=== PATIENT | female | born 1980 | race Two or more races ===

== ENCOUNTER 2020-01-12 16:04 | Emergency (ER) | payer OTHER ==
[~2020-01-12] VITALS: Ht 162.6 cm; Wt 88.0 kg
[~2020-01-12 16:04] MED LIST: ESCI20TA PO
[2020-01-12] MEDS ORDERED: ACETAMINOPHEN 500 MG TABLET ONE ×2 (16:29→16:56)
[2020-01-12] MEDS ORDERED: ACETAMINOPHEN 500 MG TABLET PO ONE (16:30)
[2020-01-12] MEDS ORDERED: SODIUM CHLORIDE 0.9% 1,000ML IVBOLUS ONE (17:30)
[2020-01-12] MEDS ORDERED: SODIUM CHLORIDE 0.9% 1,000 ML IV ONE (17:30)
[2020-01-12] MEDS ORDERED: ONDANSETRON 2MG/ML, 2ML IVPush ONE (17:30)
[2020-01-12] MEDS ORDERED: IBUPROFEN 200 MG TABLET PO ONE (17:30)
[2020-01-12] MEDS ORDERED: IBUPROFEN 600 MG TABLET ONE (17:40)
[2020-01-12] MEDS ORDERED: ONDANSETRON 2MG/ML, 2ML ONE (17:41)
[2020-01-12 18:04] LABS: BASOPHILS % (AUTO) 1 % (0-1); EOSINOPHILS % (AUTO) 1 % (1-7); LYMPHOCYTES % (AUTO) 24 % (22-44); MEAN CORPUSCULAR HEMOGLOBIN 27.1 pg (27.0-34.8); MEAN CORPUSCULAR HGB CONC 33.2 g/dL (32.4-35.8); MONOCYTES % (AUTO) 9 % (2-9); NEUTROPHILS % (AUTO) 66 % (42-75); PLATELET COUNT 138 x10^3/uL (130-400); RED BLOOD COUNT 5.66 x10^6/uL (3.82-5.3); RED CELL DISTRIBUTION WIDTH 13.7 % (9.6-15.2)
[2020-01-12 18:05] LABS: MD NO
[2020-01-12 18:15] LABS: ALBUMIN 3.4 g/dL (3.4-5.0); ANION GAP 6 mmol/L (5-15); CALCIUM 8.3 mg/dL (8.5-10.1); CHLORIDE 108 mmol/L (98-107)
[2020-01-12 18:20] LABS: ALANINE AMINOTRANSFERASE 211 U/L (12-78); ALKALINE PHOSPHATASE 113 U/L (45-117); BILIRUBIN,TOTAL 0.5 mg/dL (0.2-1.0); CREATININE 0.57 mg/dL (0.55-1.02); TOTAL PROTEIN 7.9 g/dL (6.4-8.2)
[2020-01-12 19:17] LABS: RAPID INFLUENZA A Negative (Negative); RAPID INFLUENZA B Negative (Negative)
--- NOTE | 2020-01-12 23:18 | NUR ---
COVID test resulted as positive. Attempted to call patient with number on file; unable to reach patient due to number being unavailable. Will record in culture book for follow up.
== END 2020-01-12 19:49 | disposition home or self-care (01) ==
LOC: ED 16:28
DX: U07.1 COVID-19 (principal); A41.9 Sepsis, unspecified organism; J18.1 Lobar pneumonia, unspecified organism; R51.9 Headache, unspecified; R50.9 Fever, unspecified; R05 Cough; M79.10 Myalgia, unspecified site; R11.0 Nausea; R06.02 Shortness of breath
CPT/HCPCS: 36415; 71045; 80053; 83605; 85025; 87040; 87400; 87635; 93005; 96361; 96374; 99285; J2405; J7030